=== PATIENT | female | born 2000 | race Caucasian/White ===

== ENCOUNTER 2020-07-24 22:34 | Emergency (ER) | payer OTHER ==
[2020-07-24 22:47] VITALS: BMI 32.1
[2020-07-24] MEDS ORDERED: ACETAMINOPHEN 325 MG TABLET (FP) PO ONE (23:39)
--- NOTE | 2020-07-24 23:43 | PDOC ---
History of Present Illness - General Chief Complaint: Pain Stated Complaint: RIGHT ARM PAIN Time Seen by Provider: 07/24/20 23:42 - History of Present Illness Initial Comments: HPI: 20yo F with no reported PMH presenting with R. arm pain. The pain started about one hour prior to arrival while she was mixing cake batter. Denies fall. Did not hear a crack. Has never had another like this before. Able to move and extend her arm, but keeping it flexed is more comfortable. Endorsing a mild pins and needles sensation in her right forearm. PCP: none ROS: Constitutional: no fever, no chills HEENT: no throat pain, no dysphagia Cardiovascular: no chest pain, no palpitations Respiratory: no cough, no shortness of breath Gastrointestinal: no abdominal pain, no nausea Genitourinary: no dysuria, no hematuria Musculoskeletal: no myalgia, +RUE pain Skin: no rash, no itching Neurologic: no headache, no weakness Psych: no agitation, no anxiety PE: General: Awake, alert, and fully oriented, in no acute distress Head: No signs of trauma Eyes: EOMI, sclera anicteric ENT: Moist mucus membranes Neck: Normal ROM, supple Lungs: Lungs clear, Normal breath sounds Cardio: Regular rhythm, S1 and S2 present Abdomen: Soft, nontender Extremities: RUE: holding flexed arm close to body, no deformity appreciated, normal sensation, distal pulse present, no crepitus, normal range of motion, no deformity appreciated LUE: Normal range of motion, Distal pulse present Skin: Warm, Dry, normal turgor Neurologic: Cranial nerves II through XII grossly intact. Normal speech ED Course/MDM: DDX including but not limited to dislocation, fracture, break, muscle strain Radiographs of RUE Urine test 07/24/20 23:42 Radiographs unremarkable, my impression RUE placed in sling Flexeril ordered; prescription sent to pharmacy Orthopedics and Primary care referral Return precautions Stable for discharge 07/25/20 00:56 Past History - Medical History Allergies/Adverse Reactions: Allergies Allergy/AdvReac Type Severity Reaction Status Date / Time No Known Allergies Allergy Verified 07/24/20 23:53 Home Medications: Ambulatory Orders Cyclobenzaprine HCl 5 mg PO TID #10 tablet 07/25/20 Lidocaine 5% Patch [Lidoderm -] 1 patch TP DAILY #7 patch 07/25/20 COPD: No - Reproductive History Is Patient Now?: No - Psycho-Social/Smoking History Smoking History: Never smoked - Substance Abuse Hx (Audit-C & DAST Scrn) How often the patient has a drink containing alcohol: Monthly or less How often the patient has six or more drinks on one occasion: Less than monthly Score: In Men: 4 or > Positive; In Women: 3 or > Positive: 2 Screen Result (Pos requires Nsg. Audit-10AR): Negative In the last yr the pt used illegal drug/Rx for NonMed reason: Yes Score: Yes response is considered Positive: 1 Screen Result (Positive result requires Nsg. DAST-10): Positive *Physical Exam - Vital Signs Last Vital Signs Temp Pulse Resp BP Pulse Ox 98.8 F 133 H 19 123/96 130 H 07/24/20 22:43 07/24/20 22:43 07/24/20 22:43 07/24/20 22:43 07/24/20 22:43 ED Treatment Course - RADIOLOGY Radiology Studies Ordered: Category Date Time Status HUMERUS-RIGHT [RAD] Stat Radiology 07/24/20 23:38 Ordered SHOULDER-RIGHT [RAD] Stat Radiology 07/24/20 23:37 Ordered Discharge - Discharge Information Problems reviewed: Yes Clinical Impression/Diagnosis: Right arm pain Condition: Stable Disposition: HOME - Additional Discharge Information Prescriptions: Cyclobenzaprine HCl 5 mg PO TID #10 tablet Lidocaine 5% Patch [Lidoderm -] 1 patch TP DAILY #7 patch - Follow up/Referral Referrals: Sid Khalil DO [Staff Physician] - [facility] [place] [facility] [place] [Provider Group] - Patient Discharge Instructions Patient Printed Discharge Instructions: DI for Arm Pain Additional Instructions: You came into the emergency department for right arm pain. We took x-rays which did not show acute pathology. You were placed in a sling for comfort. Prescription sent to your pharmacy. Take as instructed. You can also take qbzt-bac-[id number] tylenol or motrin for pain. Follow the instructions on the medication bottle. Make sure you do not take too much medicine. The maximum daily dose for tylenol is 4000mg/day. The maximum daily dose for motrin is 3200mg/day. You can also place ice on the arm, 20 min on, 20 min off, repeat as needed. Do not place ice directly against the skin. We have referred you to an orthopedist. Call and make an appointment if your pain does not improve within 72 hours. Your workup is not complete until you do so. Follow-up with a primary care provider within 72 hours to discuss this ED visit and to further evaluate your symptoms. Your workup is not complete until you do so. You have been referred to the [facility] in case you do not have a primary care doctor. Call and make an appointment at the number provided. Immediate medical attention is required if you experience: any focal numbness or weakness, coldness in the limb, or any new or concerning symptoms. If you think you are having an emergency, call for emergency medical services or present to the emergency department right away. - Post Discharge Activity
--- NOTE | 2020-07-24 23:55 | PDOC ---
Attending Attestation - Resident Resident Name: Esther Starr - ED Attending Attestation I have performed the following: I have examined & evaluated the patient, The case was reviewed & discussed with the resident, I agree w/resident's findings & plan - HPI HPI: 07/25/20 00:19 Pt comes with right arm pain; injured while stirring batter for a baking recipe. She was trying to make a 4 layer cake Pt has no other complaints. She states that she began with pain in the right wrist and up the arm until it affected her shoulder. She didn't feels the arm pop out. She says that she took motrin for the pain. Her sig other states that she was very anxious with the pain. Camr to the ER. He is laughing an joking. Pt is visiting from the [facility]. - Physicial Exam PE: 07/25/20 00:48 Normal exam FROM of the right arm. No swelling and no deformity Good color and pulses of extremities Normal neuro exam normal neck and back exam - Medical Decision Making 07/25/20 00:50 Pt is stable to go home/ HR normal vitals normal. Discharge - Discharge Information Problems reviewed: Yes Clinical Impression/Diagnosis: Right arm pain Condition: Stable Disposition: HOME - Additional Discharge Information Prescriptions: Cyclobenzaprine HCl 5 mg PO TID #10 tablet Lidocaine 5% Patch [Lidoderm -] 1 patch TP DAILY #7 patch - Follow up/Referral [place] [facility] [place] [facility] [place]] Sid Khalil DO [Staff Physician] - - Patient Discharge Instructions Patient Printed Discharge Instructions: DI for Arm Pain Additional Instructions: You came into the emergency department for right arm pain. We took x-rays which did not show acute pathology. You were placed in a sling for comfort. Prescription sent to your pharmacy. Take as instructed. You can also take ovtq-ntp-tjqchma tylenol or motrin for pain. Follow the instructions on the medication bottle. Make sure you do not take too much medicine. The maximum daily dose for tylenol is 4000mg/day. The maximum daily dose for motrin is 3200mg/day. You can also place ice on the arm, 20 min on, 20 min off, repeat as needed. Do not place ice directly against the skin. We have referred you to an orthopedist. Call and make an appointment if your pain does not improve within 72 hours. Your workup is not complete until you do so. Follow-up with a primary care provider within 72 hours to discuss this ED visit and to further evaluate your symptoms. Your workup is not complete until you do so. You have been referred to the [facility] in case you do not have a primary care doctor. Call and make an appointment at the number provided. Immediate medical attention is required if you experience: any focal numbness or weakness, coldness in the limb, or any new or concerning symptoms. If you think you are having an emergency, call for emergency medical services or present to the emergency department right away. - Post Discharge Activity
[2020-07-25] MEDS ORDERED: CYCLOBENZAPRINE HCL 10 MG TABLET (FP) PO ONE (00:18)
[2020-07-25] MEDS ORDERED: LIDOCAINE 5% TOPICAL PATCH TP ONE (00:18)
[2020-07-25] MEDS ORDERED: CYCLOBENZAPRINE HCL 10 MG TABLET (FP) ONE (00:34)
[2020-07-25] MEDS ORDERED: LIDOCAINE 5% TOPICAL PATCH ONE (00:35)
[2020-07-25 00:51] VITALS: BP 101/57; PULSE 75; TEMP 98.2
[2020-07-25] MEDS ORDERED: LIDOCAINE PATCH REMOVAL MC SCH (22:00)
--- NOTE | 2020-07-26 10:58 | EKG ---
Test Reason : Blood Pressure : / mmHG Vent. Rate : 076 BPM Atrial Rate : 076 BPM P-R Int : 118 ms QRS Dur : 088 ms QT Int : 354 ms P-R-T Axes : 066 044 038 degrees QTc Int : 398 ms NORMAL SINUS RHYTHM WITH SINUS ARRHYTHMIA NORMAL ECG NO PREVIOUS ECGS AVAILABLE Confirmed by KAREN MELCHOR MD ([id number]) on 07/26/2020 10:58:03 AM Referred By: Confirmed By:KAREN MELCHOR MD
== END 2020-07-25 00:57 | disposition home or self-care (01) ==
LOC: JER 22:34
DX: M79.601 Pain in right arm (principal)
CPT/HCPCS: 73030-TC-RT-FY; 73060-TC-RT-FY; 84703; 93005; 93010; 99285-25